=== PATIENT | female | born 1975 | race Caucasian/White ===

== ENCOUNTER 2021-05-25 03:38 | Outpatient (CLI) | payer OTHER, SELFPAY ==
[2021-05-25 08:31] LABS: Abs Immature Grans 0.04 10^3/uL (0.0-0.06); Absolute Basophil Count 0.02 10^3/uL (0.0-0.2); Absolute Eosinophil Count 0.06 10^3/uL (0.0-0.7); Absolute Lymphocyte Count 1.27 10^3/uL (1.2-3.4); Absolute Monocyte Count 0.42 10^3/uL (0.1-0.8); Basophils % 0.5; Eosinophils % 1.5; HCT 34.4 % (36.0-46.0); HGB 10.8 g/dL (11.2-15.7); Lymphocytes % 32.5; MCH 27.1 pg (27.0-33.0); MCHC 31.4 % (32.0-36.0); MCV 86.4 fL (80-95); MPV 10.1 fL (8.0-11.0); Monocytes % 10.7; Neutrophils % 53.8; Nucleated RBC 0 %; Platelet Count 358 10^3/uL (130-400); RBC 3.98 10^6/uL (3.93-5.22); RDW 15.1 % (11.7-14.6); RDW-SD 48.3 fL; WBC 3.91 10^3/uL (4.4-10.8)
[2021-05-25 08:41] LABS: Hemoglobin A1C 5.1 % (<5.7)
[2021-05-25 09:15] LABS: Iron 27 ug/dL (50-170); Total Iron Binding Capacity 345 ug/dL (250-450)
[2021-05-25 09:38] LABS: Vitamin D 25 Total 22.8 ng/mL (30-100)
[2021-05-25 09:46] LABS: ALT 20 U/L (14-59); AST 16 U/L (15-37); Alkaline Phosphatase 81 U/L (46-116); Anion Gap 11.3 mmol/L (3-11); BUN 9 mg/dL (7-18); Bilirubin, Total 0.4 mg/dL (0.2-1.0); CO2 25.7 mmol/L (21.0-32.0); CREATININE 0.6 mg/dL (0.55-1.02); Calcium 8.9 mg/dL (8.5-10.1); Calculated LDL 160 mg/dL (<100); Chloride 104 mmol/L (98-107); Cholesterol 258 mg/dL (<200); Ferritin 4 ng/mL (8-252); Folate 17.9 ng/mL (8.6-20.0); Glucose 90 mg/dL (74-106); HDL Cholesterol 80 mg/dL (40-60); Magnesium 1.8 mg/dL (1.8-2.4); Potassium 3.9 mmol/L (3.5-5.1); Sodium 141 mmol/L (136-145); Total Protein 7.1 g/dL (6.4-8.2); Triglyceride 94 mg/dL (<150); Vitamin B12 611 pg/mL (193-986)
[2021-05-25 10:07] LABS: FREE T4 0.86 ng/dL (0.76-1.46)
[2021-05-25 18:20] LABS: T3,Free 4.2 pg/mL (2.8-5.3)
[2021-05-25 20:28] LABS: Thyroperoxidase Antibody 37 U/mL (<=60)
[2021-05-27 10:14] LABS: Homocysteine 7.3 umol/L (5.0-13.9)
[2021-05-27 10:47] LABS: Lipoprotein (a) 234 nmol/L (<75)
[2021-05-27 13:12] LABS: Zinc, Serum 0.92 mcg/mL (0.66-1.10)
== END 2021-05-25 03:39 | disposition home or self-care (01) ==
LOC: LBO 03:39
PROVIDERS: PCP Naturopath; Visit Provider Naturopath
DX: R53.83 Other fatigue (principal); E55.9 Vitamin D deficiency, unspecified; L65.9 Nonscarring hair loss, unspecified; Z82.49 Family history of ischemic heart disease and other diseases of the circulatory system
CPT/HCPCS: 36415; 80053; 80061; 82306; 83090; 83695; 82607; 82728; 82746; 83036; 83540; 83550; 83735; 84439; 84443; 84481; 84630; 85025; 86376

== ENCOUNTER 2021-09-08 03:47 | Outpatient (CLI) | payer OTHER, SELFPAY ==
--- NOTE | 2021-09-08 09:45 | RT.EKG_ITS ---
APPROVED REPORT Exam: Resting ECG Reason for Exam: Essential Hypertension Patient Location: O HR:72 bpm ECG Measurements Heart Rate 72 AXIS VA 163 P 68 QRSd 93 QRS 22 QT 389 T 40 QTc 426 Conclusion Sinus rhythm...normal P axis, V-rate 50- 99 Normal Electrocardiogram
== END 2021-09-08 03:48 | disposition home or self-care (01) ==
LOC: RT 03:48
PROVIDERS: PCP Naturopath; Visit Provider Naturopath
DX: I10 Essential (primary) hypertension (principal)
CPT/HCPCS: 93005; 93010